=== PATIENT | male | born 1960 | race Caucasian/White ===

== ENCOUNTER 2019-01-18 00:25 | Emergency (ER) | payer BC, OTHER ==
[~2019-01-18] VITALS: Ht 177.8 cm; Wt 77.1 kg
[2019-01-18 01:46] VITALS: BP 148/77
== END 2019-01-18 01:47 | disposition home or self-care (01) ==
LOC: ER 00:25
DX: S80.11XA Contusion of right lower leg, initial encounter (principal); W22.8XXA Striking against or struck by other objects, initial encounter; Y92.89 Other specified places as the place of occurrence of the external cause; Y93.89 Activity, other specified; Y99.8 Other external cause status

== ENCOUNTER 2019-01-21 06:40 | Emergency (ER) | payer BC, OTHER ==
[~2019-01-21] VITALS: Ht 177.8 cm; Wt 79.4 kg
[2019-01-21 07:20] VITALS: BP 139/70
== END 2019-01-21 07:20 | disposition home or self-care (01) ==
LOC: ER 06:40
DX: R22.41 Localized swelling, mass and lump, right lower limb (principal); F17.210 Nicotine dependence, cigarettes, uncomplicated